=== PATIENT | male | born 1985 | race Caucasian/White ===

== ENCOUNTER 2022-07-31 20:31 | Emergency (ER) | payer OTHER ==
[~2022-07-31] VITALS: Ht 182.9 cm; Wt 75.0 kg
[2022-07-31] MEDS ORDERED: LIDOCAINE 1% MDV 20ML VIAL SC ONE (21:20)
[2022-07-31] MEDS ORDERED: BOOSTRIX/ADACEL VACCINE (DIPHTH/PERTUSS/ACELL/TETANUS) 0.5ML SYR IM ONE (21:20)
[2022-07-31] MEDS ORDERED: BACITRACIN OINTMENT 30GM TUBE TOP ONE (22:55)
[2022-07-31] MEDS ORDERED: CEPH500C PO (23:05)
[2022-07-31] MEDS ORDERED: CEPHALEXIN 500 MG CAP PO ONE (23:05)
[2022-07-31 23:38] VITALS: BP 141/87
== END 2022-07-31 23:40 | disposition home or self-care (01) ==
LOC: M ED 20:31
DX: S61.215A Laceration without foreign body of left ring finger without damage to nail, initial encounter (principal); S61.317A Laceration without foreign body of left little finger with damage to nail, initial encounter; W26.8XXA Contact with other sharp object(s), not elsewhere classified, initial encounter; Y92.9 Unspecified place or not applicable; Y93.9 Activity, unspecified; Y99.9 Unspecified external cause status

== ENCOUNTER 2023-01-05 13:35 | Inpatient (IN) | payer OTHER ==
[~2023-01-05] VITALS: Ht 182.9 cm; Wt 85.6 kg
[~2023-01-05 13:35] MED LIST: CEPH500C PO
[2023-01-05] MEDS ORDERED: MORPHINE 2 MG/ML 1ML VIAL IV ONE (15:35)
[2023-01-05 15:49] LABS: BASO % 0.3 % (0.0-1.0); EOS % 0.4 % (0.0-3.0); HEMOGLOBIN 14.8 g/dl (13.5-17.5); LYMPH # 1.1 10^3/uL (1.5-5.0); LYMPH % 14.8 % (24.0-44.0); MEAN CORPUSCULAR HEMOGLOBIN 31.2 pg (27.0-33.0); MEAN CORPUSCULAR HGB CONC 35.2 g/dl (32.0-36.5); MEAN CORPUSCULAR VOLUME 88.6 fl (80.0-96.0); MONO # 0.4 10^3/uL (0.0-0.8); MONO % 5.5 % (2.0-8.0); NEUTROPHILS % 78.9 % (36.0-66.0); PLATELET COUNT, AUTOMATED 231 10^3/uL (150-450); RED BLOOD COUNT 4.74 10^6/uL (4.30-6.10); WHITE BLOOD COUNT 7.6 10^3/uL (4.0-10.0)
[2023-01-05 16:13] LABS: BLOOD UREA NITROGEN 14 MG/DL (9-23); CARBON DIOXIDE LEVEL 28 MMOL/L (20-31); CHLORIDE LEVEL 104 MMOL/L (98-107); CK-MB VALUE MASS 1.1 NG/ML (<3.6); CPK CREATINE PHOSPHOKINASE 175 U/L (46-171); CREATININE FOR GFR 0.88 MG/DL (0.70-1.30); GLOMERULAR FILTRATION RATE > 60.0 (>60); GLUCOSE, FASTING 95 MG/DL (60-100); MB/CK RELATIVE INDEX 0.62 (< OR =4); POTASSIUM SERUM 4.2 MMOL/L (3.5-5.1); SODIUM LEVEL 138 MMOL/L (136-145)
[2023-01-05] MEDS ORDERED: ISOVUE-370 76% 100ML VIAL As Ordered ONE (16:16)
[2023-01-05] MEDS ORDERED: NS 1,000 ML IV ONE (17:00)
[2023-01-05] MEDS ORDERED: KETOROLAC 30 MG/ML 1ML VIAL IV ONE (17:00)
[2023-01-05] MEDS ORDERED: METOCLOPRAMIDE INJ 10MG/2ML VIAL IV ONE (17:00)
[2023-01-05] MEDS ORDERED: ACETAMINOPHEN 500 MG TAB PO ONE (17:00)
[2023-01-05 18:53] LABS: PROTHROMBIN TIME 13.4 SECONDS (12.5-14.5)
[2023-01-05 19:17] LABS: RSV AMPLIFICATION NEGATIVE (NEGATIVE)
[2023-01-05 19:25] LABS: CPK CREATINE PHOSPHOKINASE 159 U/L (46-171); MB/CK RELATIVE INDEX 0.62 (< OR =4)
[2023-01-05] MEDS ORDERED: HOME MED LIST COMPLETE! XX SCH (19:40)
[2023-01-05] MEDS ORDERED: NS 1,000 ML IV SCH (19:40)
[2023-01-05] MEDS ORDERED: ACETAMINOPHEN TAB 650MG DOSE (2X325MG) PO PRN ×2 (19:40)
[2023-01-05 21:01] LABS: THYROID STIMULATING HORMONE 0.388 uIU/ML (0.55-4.78)
[2023-01-05 21:28] LABS: HEMOGLOBIN A1c 4.8 % (4.0-6.0)
[2023-01-05 22:45] VITALS: BP 115/55
[2023-01-06 06:00] VITALS: BP 104/54
[2023-01-06 07:19] LABS: HEMATOCRIT 37.9 % (42.0-52.0); HEMOGLOBIN 12.9 g/dl (13.5-17.5); MEAN CORPUSCULAR HEMOGLOBIN 30.7 pg (27.0-33.0); MEAN CORPUSCULAR VOLUME 90.2 fl (80.0-96.0); PLATELET COUNT, AUTOMATED 249 10^3/uL (150-450); WHITE BLOOD COUNT 9.2 10^3/uL (4.0-10.0)
[2023-01-06 07:48] LABS: ALBUMIN 3.2 G/DL (3.2-5.2); ALKALINE PHOSPHATASE 56 U/L (46-116); ALT/SGPT 16 U/L (7.0-40); AST/SGOT 13 U/L (<34); BILIRUBIN,TOTAL 0.5 MG/DL (0.3-1.2); BLOOD UREA NITROGEN 18 MG/DL (9-23); CALCIUM LEVEL 8.2 MG/DL (8.5-10.1); CARBON DIOXIDE LEVEL 27 MMOL/L (20-31); CHLORIDE LEVEL 108 MMOL/L (98-107); CHOLESTEROL LEVEL 113 MG/DL (<200); CHOLESTEROL RISK RATIO 2.21 (<5); CREATININE FOR GFR 0.91 MG/DL (0.70-1.30); GLOMERULAR FILTRATION RATE > 60.0 (>60); GLUCOSE, FASTING 145 MG/DL (60-100); MAGNESIUM LEVEL 1.8 MG/DL (1.8-2.4); POTASSIUM SERUM 4.2 MMOL/L (3.5-5.1); SODIUM LEVEL 141 MMOL/L (136-145); TOTAL PROTEIN 5.1 G/DL (5.7-8.2); TRIGLYCERIDES LEVEL 35 MG/DL (<150)
[2023-01-06] MEDS ORDERED: FIOR1CAP PO (08:03)
[2023-01-06] MEDS ORDERED: ENOXAPARIN 40MG/0.4ML SYRINGE (J1650 PER 10MG) SC SCH (09:00)
== END 2023-01-06 11:33 | disposition home or self-care (01) | DRG 54 ==
LOC: EDBD 13:35 → M ED 13:35 → M ED INP 19:37 → ENRESERV 21:28 → M MSPAV 22:43
PROVIDERS: ADMIT Internal Medicine; ATTEND General Practice
DX: G43.109 Migraine with aura, not intractable, without status migrainosus (principal)

== ENCOUNTER 2024-06-21 12:43 | Emergency (ER) | payer OTHER ==
[~2024-06-21] VITALS: Ht 182.9 cm; Wt 77.1 kg
[~2024-06-21 12:43] MED LIST changes: +FIOR1CAP PO
[2024-06-21] MEDS: LIDOCAINE 2% MDV 20ML VIAL SC ONE (15:46)
[2024-06-21] MEDS: BACITRACIN OINTMENT 30GM TUBE TOP STA (15:46)
[2024-06-21 15:52] VITALS: BP 116/75; TEMP 97.6; O2SAT 98
== END 2024-06-21 15:56 | disposition home or self-care (01) ==
LOC: M ED 12:43
DX: S61.411A Laceration without foreign body of right hand, initial encounter (principal); W26.8XXA Contact with other sharp object(s), not elsewhere classified, initial encounter; G43.909 Migraine, unspecified, not intractable, without status migrainosus; J45.909 Unspecified asthma, uncomplicated; Y92.009 Unspecified place in unspecified non-institutional (private) residence as the place of occurrence of the external cause; Y93.89 Activity, other specified; Y99.9 Unspecified external cause status

== ENCOUNTER 2024-07-23 10:13 | Emergency (ER) | payer OTHER ==
[~2024-07-23] VITALS: Ht 182.9 cm; Wt 79.8 kg
[2024-07-23 11:50] VITALS: BP 100/52; TEMP 96.7; O2SAT 98
[2024-07-23] MEDS ORDERED: CEPH500C PO (12:01)
[2024-07-23] MEDS: BACITRACIN OINTMENT 30GM TUBE TOP ONE (12:09)
== END 2024-07-23 12:10 | disposition home or self-care (01) ==
LOC: M ED 10:13
DX: S61.402A Unspecified open wound of left hand, initial encounter (principal); L08.9 Local infection of the skin and subcutaneous tissue, unspecified; J45.909 Unspecified asthma, uncomplicated; G43.909 Migraine, unspecified, not intractable, without status migrainosus; Z79.2 Long term (current) use of antibiotics; Y92.9 Unspecified place or not applicable; Y93.9 Activity, unspecified; Y99.9 Unspecified external cause status